=== PATIENT | female | born 1970 | race Caucasian/White ===

== ENCOUNTER 2020-09-18 19:36 | Emergency (ER) | payer OTHER ==
[~2020-09-18] VITALS: Ht 162.6 cm; Wt 83.0 kg
[~2020-09-18 19:36] MED LIST: AMBIEN 5 MG TABL5 M1; FLOMAX PO; IBUPROFEN 800800 M1 PO; NORCO 5-325 TA1 EACH PO; SPRINTEC1 EACH
[2020-09-18] MEDS ORDERED: AMOXICILLIN125 M1 PO (19:56)
[2020-09-18] MEDS ORDERED: DOXYCYCLINE 10100 MG PO (21:08)
[2020-09-18] MEDS ORDERED: HYDROXYZINE HCL25 M2 PO (21:08)
[2020-09-18 21:30] VITALS: BP 120/70
== END 2020-09-18 21:30 | disposition home or self-care (01) ==
LOC: M.ERS 19:36
DX: S90.861A Insect bite (nonvenomous), right foot, initial encounter (principal); L08.9 Local infection of the skin and subcutaneous tissue, unspecified; Z20.822 Contact with and (suspected) exposure to COVID-19; J01.90 Acute sinusitis, unspecified; W57.XXXA Bitten or stung by nonvenomous insect and other nonvenomous arthropods, initial encounter; Y93.89 Activity, other specified; Y92.89 Other specified places as the place of occurrence of the external cause; Y99.8 Other external cause status